=== PATIENT | female | born 1995 | race Asian ===

== ENCOUNTER 2018-07-01 14:18 | Emergency (ER) | payer OTHER ==
[2018-07-01] MEDS: CYCLOBENZAPRINE 10 MG TAB PO (18:01)
[2018-07-01] MEDS: KETOROLAC 60 MG/2 ML VIAL (J1885) IM (18:01)
== END 2018-07-01 18:29 | disposition home or self-care (01) ==
LOC: M ED 14:18
DX: S80.811A Abrasion, right lower leg, initial encounter (principal); M54.2 Cervicalgia; M54.5 Low back pain; V43.52XA Car driver injured in collision with other type car in traffic accident, initial encounter; Y92.410 Unspecified street and highway as the place of occurrence of the external cause; Y93.9 Activity, unspecified; Y99.9 Unspecified external cause status; Z72.0 Tobacco use
CPT/HCPCS: J1885